=== PATIENT | male | born 1955 | race Caucasian/White ===

== ENCOUNTER 2017-02-19 11:21 | Emergency (ER) | payer BC, OTHER ==
[2017-02-19] MEDS ORDERED: Naproxen 500 MG TAB ONE (12:54)
[2017-02-19] MEDS ORDERED: HYDROcodone/Acetaminophen 10/325 mg Tablet ONE (12:54)
[2017-02-19] MEDS ORDERED: Azithromycin 250 MG TAB ONE (12:54)
== END 2017-02-19 13:01 | disposition home or self-care (01) ==
LOC: MADERS 11:21
DX: K04.7 Periapical abscess without sinus (principal); K02.9 Dental caries, unspecified; G51.0 Bell's palsy; I25.2 Old myocardial infarction; E78.5 Hyperlipidemia, unspecified; I10 Essential (primary) hypertension; Z79.899 Other long term (current) drug therapy
CPT/HCPCS: 99283

== ENCOUNTER 2024-02-21 13:15 | Emergency (ER) | payer OTHER ==
[~2024-02-21 13:15] MED LIST: Iopamidol 370 76% 100 ML VIAL ONE
[2024-02-21] MEDS ORDERED: Nitroglycerin 0.4 MG TAB 1 EACH ONE (15:05)
[2024-02-21 15:10] LABS: #Basophils 0.1 thou/uL (0.0-0.2); #Eosinphils 0.1 thou/uL (0.0-0.7); #Lymphocytes 2.5 thou/uL (1.20-3.40); #Monocytes 0.8 thou/uL (0.11-0.59); #Neutrophils 5.8 thou/uL (1.40-6.50); %Basophils 1.1 % (0.0-1.0); %Eosinophils 1.4 % (0.0-10.0); %Lymphocytes 26.4 % (21.0-51.0); %Monocytes 8.6 % (0.0-10.0); %Neutrophils 62.4 % (42.0-75.0); Hematocrit 54.8 % (42.0-52.0); Hemoglobin 17.2 g/dL (14.0-18.0); Mean Corpuscular HGB CONC 31.3 g/dL (32.0-36.0); Mean Corpuscular Hemoglobin 29.2 pg (27.0-31.0); Mean Platelet Volume 8.9 fL (7.4-10.4); Platelet Count 168 10x3/uL (130-400); RBC Distribution Width 12.7 % (11.5-14.5); Red Blood Cell (RBC) Count 5.89 mill/uL (4.70-6.10); White Blood Cell (WBC) Count 9.3 10x3/uL (4.8-10.8)
[2024-02-21 15:11] LABS: INR-International Normal Ratio 1.1; Prothrombin Time 13.9 sec (12.0-14.7)
[2024-02-21 15:12] LABS: PTT 25.9 sec (22.9-36.1)
[2024-02-21 15:23] LABS: Troponin I Less than 0.010 ng/mL (< 0.028)
[2024-02-21 15:24] LABS: ALT (SGPT) 53 U/L (8-55); AST (SGOT) 38 U/L (5-34); Albumin 4.1 g/dL (3.4-4.8); Alkaline Phosphatase 95 U/L (40-110); Anion Gap 18 mmol/L (10-20); BUN (Urea Nitrogen) 23 mg/dL (8.4-25.7); Bilirubin, Total 0.5 mg/dL (0.2-1.2); Calc. Creatinine Clearance 0 mL/min (70-130); Calcium 9.3 mg/dL (7.8-10.44); Carbon Dioxide 20 mmol/L (23-31); Chloride 106 mmol/L (98-107); Estimated GFR 66; Globulin 3.6 g/dL (2.4-3.5); Glucose 113 mg/dL (80-115); Lipase 43 U/L (8-78); Magnesium 2.1 mg/dL (1.6-2.6); Potassium 4.3 mmol/L (3.5-5.1); Protein, Total 7.7 g/dL (5.8-8.1); Sodium 140 mmol/L (136-145)
[2024-02-21 16:15] LABS: SARS-CoV-2 E Target Negative; SARS-CoV-2 N2 Target Negative; SARS-CoV-2 NAA Rapid Test Not Detected (NotDetected); SARS-CoV-2 RdRP gene Negative
[2024-02-21 19:28] LABS: Troponin I Less than 0.010 ng/mL (< 0.028)
[2024-02-21] MEDS ORDERED: Acetaminophen 500 MG TAB ONE (20:13)
[2024-02-21] MEDS ORDERED: Ketorolac Tromethamine 30 MG (1 mL) VIAL ONE (21:23)
[2024-02-21 21:36] LABS: Troponin I Less than 0.010 ng/mL (< 0.028)
== END 2024-02-21 22:14 | disposition short-term general hospital (02) ==
LOC: MADERS 13:15
DX: R07.9 Chest pain, unspecified (principal); K80.20 Calculus of gallbladder without cholecystitis without obstruction; M65.4 Radial styloid tenosynovitis [de Quervain]; I10 Essential (primary) hypertension; E78.5 Hyperlipidemia, unspecified; Z79.899 Other long term (current) drug therapy
CPT/HCPCS: 36415; 71275; 74174; 80053; 83690; 83735; 83880; 84484; 85025; 85610; 85730; 93005; 94760; 96374; J1885; Q9967; U0002